=== PATIENT | female | born 1980 | race Caucasian/White ===

== ENCOUNTER → 2019-04-26 | Outpatient (CLI) | payer OTHER ==
--- NOTE | 2019-04-26 09:26 | CT ---
EXAMINATION TYPE: CT brain wo con DATE OF EXAM: 04/26/2019 COMPARISON: None. HISTORY: headache/lightheaded post head trauma CT DLP: 796 mGycm. Automated Exposure Control for Dose Reduction was Utilized. TECHNIQUE: CT scan of the head is performed without contrast. FINDINGS: There is no acute intracranial hemorrhage, mass effect, or midline shift identified. The ventricles and sulci are within normal limits in size. Ballard-white matter differentiation is maintain ed. The globes are intact and the visualized sinuses are clear. IMPRESSION: No acute intracranial hemorrhage, mass effect, or midline shift is seen.
== END | disposition home or self-care (01) ==
LOC: RADXRMAIN 08:59
PROVIDERS: ATTEND Emergency Medicine
DX: S00.83XD Contusion of other part of head, subsequent encounter (principal)
CPT/HCPCS: 70450